=== PATIENT | female | born 1965 | race Asian ===

== ENCOUNTER 2017-03-25 10:02 | Day surgery (SDC) | payer OTHER ==
[2017-03-24 15:07] VITALS: BMI 35.7
[2017-03-25 12:47] VITALS: TEMP 98.3
[2017-03-25 15:56] VITALS: BP 139/81; PULSE 87
--- NOTE | 2017-03-26 11:52 | PATH ---
Surgical Pathology Report Patient Name: GARETT BURK [facility]. Rec. #: [id number] /Age/Gender: 1965 (Age: 51) / F Account: [id number] Location: [facility]-ENDOSCOPY Taken: 03/25/2017 Received: 03/25/2017 Reported: 03/26/2017 Physicians: Louis Grimes M.D. Specimen(s) Received A: BX DUODENUM B: BX GASTRIC BODY ERYTHEMA C: BX GE JUNCTION Clinical History Erythema in gastric body, thickened fold GE junction Final Diagnosis A. DUODENUM, BIOPSY: DUODENAL MUCOSA WITH SMALL BENIGN LYMPHOID AGGREGATE WITHIN LAMINA PROPRIA. NO ACTIVE INFLAMMATION IDENTIFIED. NO HISTOLOGIC EVIDENCE OF GLUTEN SENSITIVE ENTEROPATHY (CELIAC SPRUE) IDENTIFIED. B. STOMACH, BODY, BIOPSY: GASTRIC FUNDIC MUCOSA WITH FOCAL MILD CHRONIC GASTRITIS. IMMUNOSTAIN FOR H. PYLORI IS NEGATIVE. C. GE JUNCTION, BIOPSY: SQUAMOUS AND GASTRIC MUCOSA WITH CHRONIC INFLAMMATION AND FOCAL HYPERPLASTIC CHANGES. NO INTESTINAL METAPLASIA IDENTIFIED (NO LIM'S IDENTIFIED). Electronically Signed Mark Mathias M.D. Gross Description A. Received in formalin, labeled "biopsy duodenum" are 2 langley, irregular portions of soft tissue measuring 0.2-0.3 cm. in greatest dimension. The specimens are submitted in toto in one cassette. B. Received in formalin, labeled "biopsy gastric body erythema" are 2 langley, irregular portions of soft tissue measuring 0.1-0.3 cm. in greatest dimension. The specimens are submitted in toto in one cassette. C. Received in formalin, labeled "biopsy GE junction thickened fold" are 2 langley, irregular portions of soft tissue measuring 0.2-0.3 cm. in greatest dimension. The specimens are submitted in toto in one cassette. [facility]/03/25/2017 [facility]/03/25/2017
== END 2017-03-25 13:35 | disposition home or self-care (01) ==
LOC: JASU-ENDO 10:02
PROVIDERS: ATTEND Internal Medicine Gastroenterology
PROC: 0DB68ZX Excision of Stomach, Via Natural or Artificial Opening Endoscopic, Diagnostic (ICD-10-PCS; 2017-03-25)
PROC: 0DB58ZX Excision of Esophagus, Via Natural or Artificial Opening Endoscopic, Diagnostic (ICD-10-PCS; principal; 2017-03-25 11:00)
DX: D64.9 Anemia, unspecified (principal); K29.50 Unspecified chronic gastritis without bleeding
CPT/HCPCS: 88305-TC; 88342-TC

== ENCOUNTER 2017-04-01 09:39 | Day surgery (SDC) | payer OTHER ==
[2017-04-01 10:17] VITALS: BMI 36.7
[2017-04-01] MEDS ORDERED: PROPOFOL 20 ML ONE ×2 (10:31)
[2017-04-01] MEDS ORDERED: LIDOCAINE HCL 2% (20ML MULTI-DOSE VIAL) NR ONE (10:31)
[2017-04-01 11:21] VITALS: TEMP 98.5
[2017-04-01 12:10] VITALS: BP 125/60; PULSE 81
== END 2017-04-01 12:10 | disposition home or self-care (01) ==
LOC: JASU-ENDO 09:39
PROVIDERS: ATTEND Internal Medicine Gastroenterology
PROC: 0DJD8ZZ Inspection of Lower Intestinal Tract, Via Natural or Artificial Opening Endoscopic (ICD-10-PCS; principal; 2017-04-01 10:00)
DX: D64.9 Anemia, unspecified (principal); K57.30 Diverticulosis of large intestine without perforation or abscess without bleeding